=== PATIENT | female | born 1965 | race Caucasian/White ===

== ENCOUNTER → 2018-10-27 16:41 | Emergency (ER) | payer OTHER ==
[~2018-10-27 16:41] MED LIST: Ibuprofen TAB* 600 MG PO ONE; LORazepam TAB(*) 1 MG PO ONE; Mouth Piece, Nicotine* 1 EACH CARTRIDGE INH PRN; Nicotine Inhaler* 10 MG AMP INH PRN; Sulfamethox/Trimethoprim DS 800/160* TAB PO ONE
[2018-10-27 20:17] LABS: ABS Basophils 0.1 10^3/ul (0-0.2); ABS Eosinophils 0.1 10^3/ul (0-0.6); ABS Lymphocytes 2.4 10^3/ul (1.0-4.8); ABS Monocytes 0.6 10^3/ul (0-0.8); ABS Neutrophils 3.2 10^3/ul (1.5-7.7); ABS Nucleated RBC 0 10^3/ul; Eosinophil % 2.1 %; Hematocrit 42 % (35-47); Hemoglobin 14.1 g/dl (12.0-16.0); Lymphocyte % 37.8 %; Mean Corpuscular HGB Conc 34 g/dl (31-36); Mean Corpuscular Hemoglobin 31 pg (27-31); Mean Corpuscular Volume 90 fL (80-97); Mean Platelet Volume 6.9 fL (7.4-10.4); Nucleated Red Blood Cells % 0.1; Platelet Count 299 10^3/ul (150-450); Red Cell Distribution Width 14 % (10.5-15); White Blood Count 6.4 10^3/ul (3.5-10.8)
[2018-10-27 20:36] LABS: ALT 19 U/L (7-52); AST 19 U/L (13-39); Albumin 4.7 g/dL (3.2-5.2); Alkaline Phosphatase 61 U/L (34-104); Anion Gap 8 mmol/L (2-11); BUN/Creatinine Ratio 16.5 (8-20); Blood Urea Nitrogen 13 mg/dL (6-24); CO2 Carbon Dioxide 25 mmol/L (22-32); Calcium 9.5 mg/dL (8.6-10.3); Chloride 105 mmol/L (101-111); EGFR African American 91.8 (>60); EGFR Non-African American 75.8 (>60); Globulin 2.4 g/dL (2-4); Glucose 102 mg/dL (70-100); Potassium 3.7 mmol/L (3.5-5.0); Sodium 138 mmol/L (135-145); Total Protein 7.1 g/dL (6.4-8.9)
[2018-10-27 21:01] LABS: Acetaminophen < 15 mcg/mL; Alcohol < 10 mg/dL (<10); Salicylate < 2.50 mg/dL (<30)
[2018-10-27 21:16] LABS: TSH (Thyroid Stimulating Horm) 2.37 mcIU/mL (0.34-5.60)
[2018-10-27 21:37] LABS: Urine Appearance Cloudy; Urine Bacteria Absent (Absent); Urine Bilirubin Negative (Negative); Urine Blood 1+ (Negative); Urine Color Yellow; Urine Glucose Negative (Negative); Urine Ketones Trace (Negative); Urine Nitrite Negative (Negative); Urine Protein Negative (Negative); Urine Red Blood Cell 2+(6-10/hpf) (Absent); Urine Specific Gravity 1.013 (1.010-1.030); Urine Squamous Epithelial Cell Present (Absent); Urine Urobilinogen Negative (Negative); Urine White Blood Cell 3+(>20/hpf) (Absent)
--- NOTE | 2018-10-27 21:45 | ED ---
Medical Screening - HPI Summary HPI Summary: Patient complains of progressive anxiety 1 week. Patient has history of anxiety and depression, lives alone, and states she is very afraid to be alone. Denies SI, HI. Does not have a therapist. Denies any other pain, injury or symptoms. Medical history is anxiety and depression. Daily EtOH, denies recreational drug use. Nonsmoker. - History of Current Complaint Chief Complaint: EDPsychosocial Stated Complaint: ANXIETY Time Seen by Provider: 10/27/18 19:16 Onset/Duration: Started Days Ago Severity: moderate PMH/Surg Hx/FS Hx/Imm Hx Endocrine/Hematology History: Denies: Hx Anticoagulant Therapy Cardiovascular History: Denies: Hx Cardiac Arrest, Hx Pacemaker/ICD History: Denies: Hx Dialysis Sensory History: Denies: Hx Hearing Aid Opthamlomology History: Denies: Hx Legally Blind EENT History: Denies: Hx Deafness Neurological History: Reports: Hx Headaches Psychiatric History: Denies: Hx Panic Disorder - Cancer History Cancer Type, Location and Year: COLON CA, 2008 WITH PARTIAL REMOVAL OF COLON. Hx Chemotherapy: No Hx Radiation Therapy: No - Surgical History Surgery Procedure, Year, and Place: COLON CA WITH REMOVAL OF PARTIAL COLON 2008. Infectious Disease History: No Infectious Disease History: Denies: Traveled Outside the [place] in Last 30 Days - Social History Alcohol Use: Daily Substance Use Type: Reports: None Smoking Status (MU): Never Smoked Tobacco Review of Systems Constitutional: Negative Eyes: Negative ENT: Negative Cardiovascular: Negative Respiratory: Negative Gastrointestinal: Negative Genitourinary: Negative Musculoskeletal: Negative Skin: Negative Neurological: Negative Positive: Anxious All Other Systems Reviewed And Are Negative: Yes Physical Exam - Summary Physical Exam Summary: Patient alert and oriented, tearful during exam. Physical exam unremarkable. Triage Information Reviewed: Yes Vital Signs On Initial Exam: Initial Vitals Temp Pulse Resp BP Pulse Ox 99.0 F 98 20 163/96 97 10/27/18 17:12 10/27/18 17:12 10/27/18 17:12 10/27/18 17:12 10/27/18 17:12 Vital Signs Reviewed: Yes Appearance: Positive: Well-Appearing Skin: Positive: Warm Head/Face: Positive: Normal Head/Face Inspection Eyes: Positive: Normal Neck: Positive: Supple Respiratory/Lung Sounds: Positive: Clear to Auscultation Cardiovascular: Positive: Normal Abdomen Description: Positive: Nontender Musculoskeletal: Positive: Normal Neurological: Positive: Normal Psychiatric: Positive: Normal AVPU Assessment: Alert - Reza Coma Scale Best Eye Response: 4 - Spontaneous Best Motor Response: 6 - Obeys Commands Best Verbal Response: 5 - Oriented Coma Scale Total: 15 Diagnostics - Vital Signs Vital Signs Temp Pulse Resp BP Pulse Ox 10/27/18 19:58 18 10/27/18 19:13 80 99 10/27/18 19:12 84 163/85 97 10/27/18 17:12 99.0 F 98 20 163/96 97 - Laboratory Lab Results: Lab Results 10/27/18 10/27/18 10/27/18 Range/Units 19:14 19:14 21:00 WBC 6.4 (3.5-10.8) 10^3/ul RBC 4.60 (4.00-5.40) 10^6/ul Hgb 14.1 (12.0-16.0) g/dl Hct 42 (35-47) % MCV 90 (80-97) fL MCH 31 (27-31) pg MCHC 34 (31-36) g/dl RDW 14 (10.5-15) % Plt Count 299 (150-450) 10^3/ul MPV 6.9 L (7.4-10.4) fL Neut % (Auto) 49.4 % Lymph % (Auto) 37.8 % [place] % (Auto) 9.8 % Eos % (Auto) 2.1 % Baso % (Auto) 0.9 % Absolute Neuts (auto) 3.2 (1.5-7.7) 10^3/ul Absolute Lymphs (auto) 2.4 (1.0-4.8) 10^3/ul Absolute Monos (auto) 0.6 (0-0.8) 10^3/ul Absolute Eos (auto) 0.1 (0-0.6) 10^3/ul Absolute Basos (auto) 0.1 (0-0.2) 10^3/ul Absolute Nucleated RBC 0 10^3/ul Nucleated RBC % 0.1 Sodium 138 (135-145) mmol/L Potassium 3.7 (3.5-5.0) mmol/L Chloride 105 (101-111) mmol/L Carbon Dioxide 25 (22-32) mmol/L Anion Gap 8 (2-11) mmol/L BUN 13 (6-24) mg/dL Creatinine 0.79 (0.51-0.95) mg/dL Est GFR ( Amer) 91.8 (>60) Est GFR (Non-Af Amer) 75.8 (>60) BUN/Creatinine Ratio 16.5 (8-20) Glucose 102 H (70-100) mg/dL Calcium 9.5 (8.6-10.3) mg/dL Total Bilirubin 0.40 (0.2-1.0) mg/dL AST 19 (13-39) U/L ALT 19 (7-52) U/L Alkaline Phosphatase 61 (34-104) U/L Total Protein 7.1 (6.4-8.9) g/dL Albumin 4.7 (3.2-5.2) g/dL Globulin 2.4 (2-4) g/dL Albumin/Globulin Ratio 2.0 (1-3) TSH 2.37 (0.34-5.60) mcIU/mL Urine Color Yellow Urine Appearance Cloudy Urine pH 5.0 (5-9) Ur Specific [place] 1.013 (1.010-1.030) Urine Protein Negative (Negative) Urine Ketones Trace A (Negative) Urine Blood 1+ A (Negative) Urine Nitrate Negative (Negative) Urine Bilirubin Negative (Negative) Urine Urobilinogen Negative (Negative) Ur Leukocyte Esterase 3+ A (Negative) Urine WBC (Auto) 3+(>20/hpf) A (Absent) Urine RBC (Auto) 2+(6-10/hpf) A (Absent) Ur Squamous Epith Cells Present A (Absent) Urine Bacteria Absent (Absent) Urine Glucose Negative (Negative) Salicylates < 2.50 (<30) mg/dL Acetaminophen < 15 mcg/mL Serum Alcohol < 10 (<10) mg/dL Result Diagrams: 10/27/18 19:14 10/27/18 19:14 Lab Statement: Any lab studies that have been ordered have been reviewed, and results considered in the medical decision making process. Course/Dx - Course Course Of Treatment: Patient complains of progressive anxiety 1 week. Patient has history of anxiety and depression, lives alone, and states she is very afraid to be alone. Denies SI, HI. Does not have a therapist. Denies any other pain, injury or symptoms. Medical history is anxiety and depression. Daily EtOH, denies recreational drug use. Nonsmoker. Patient alert and oriented, tearful during exam. Physical exam unremarkable. Vital signs within normal limits. Labs unremarkable. UA appears to be positive for UTI. Cultures pending. Patient prefers to wait until cultures completed before starting antibiotics. Patient evaluated by mental health and outpatient therapy has been recommended. Patient understands and approves of plan. - Diagnoses Provider Diagnoses: UTI (urinary tract infection), Anxiety Discharge - Sign-Out/Discharge Documenting (check all that apply): Patient Departure Patient Received Moderate/Deep Sedation with Procedure: No - Discharge Plan Condition: Stable Disposition: HOME Prescriptions: Sulfamethox/Trimethoprim DS* [Bactrim DS 800/160 TAB*] 1 tab PO BID 10 Days #20 tab Patient Education Materials: Urinary Tract Infection in Women (ED), Mood Disorders (ED), Anxiety (ED) Referrals: Tyson Caban MD [Primary Care Provider] - Additional Instructions: Follow-up with outpatient therapy options as discussed with mental health evaluation provider. Return to the ED for any new or worsening symptoms. - Billing Disposition and Condition Condition: STABLE Disposition: Home
[2018-10-27 21:46] LABS: Barbiturates Urine Screen None Detected (None Detect); Benzodiazepine Urine Screen None Detected (None Detect); Urine Cannabinoids Screen None Detected (None Detect)
[2018-10-27 23:10] VITALS: BP 128/95
== END | disposition home or self-care (01) ==
LOC: ED 16:41
DX: N39.0 Urinary tract infection, site not specified (principal); F41.9 Anxiety disorder, unspecified; Z85.038 Personal history of other malignant neoplasm of large intestine
CPT/HCPCS: 36415; 80053; 80307; 80320; 80329; 81003; 81015; 84443; 85025; 87086; 99284; A9270-GY; G0480

== ENCOUNTER 2023-04-24 10:31 | Inpatient (IN) ==
[~2023-04-24 10:31] MED LIST changes: +CEFEPIME IVPB SCH; +GEMCITABINE HCL IVPB SCH; -Ibuprofen TAB* 600 MG PO ONE; -LORazepam TAB(*) 1 MG PO ONE; -Mouth Piece, Nicotine* 1 EACH CARTRIDGE INH PRN; +NS 0.9% IVPB SCH; -Nicotine Inhaler* 10 MG AMP INH PRN; -Sulfamethox/Trimethoprim DS 800/160* TAB PO ONE
[2023-04-24] MEDS ORDERED: Ondansetron 4 mg VIAL 2 MG/ML 2 ml VIAL IV PRN (11:14)
[2023-04-24] MEDS ORDERED: Cefepime 2 GM VIAL ONE (11:18)
[2023-04-24 11:46] LABS: Rapid Strep Molecular Negative (Negative)
[2023-04-24 11:59] LABS: Hematocrit 31.7 % (35-45); Hemoglobin 10.6 g/dL (11.5-14.3); Mean Corpuscular Hemoglobin 28.3 pg (27-33); Mean Corpuscular Hgb Conc 33.5 g/dL (31-36); Mean Corpuscular Volume 84.3 fL (80-97); Mean Platelet Volume 10.5 fL (7.5-11.2); Platelet Count 53 10^3/uL (150-450); Red Blood Count 3.76 10^6/uL (3.63-4.92); Red Cell Distribution Width 16.2 % (12-17); White Blood Count 0.7 10^3/uL (3.8-11.8)
[2023-04-24] MEDS ORDERED: Enoxaparin 40 MG/0.4 ML SYR SUBCUT SCH (12:00)
[2023-04-24 12:14] LABS: Urine Appearance Clear; Urine Bilirubin 1+ (Negative); Urine Blood Negative (Negative); Urine Color Amber; Urine Glucose Negative (Negative); Urine Ketones Negative (Negative); Urine Nitrite Negative (Negative); Urine Protein Negative (Negative); Urine Specific Gravity 1.015 (1.002-1.030); Urine Urobilinogen Positive (Negative)
[2023-04-24 12:14] LABS: Albumin 2.6 g/dL (3.2-5.2); Calcium 7.6 mg/dL (8.6-10.3); Creatinine, Serum 0.76 mg/dL (0.51-0.95); Globulin 2.5 g/dL (2-4); Potassium 3.2 mmol/L (3.5-5.0); Total Bilirubin 4.5 mg/dL (0.2-1.0); Total Protein 5.1 g/dL (6.4-8.9); eGFR CKD-EPI 90.8 (>60)
[2023-04-24 12:40] LABS: Magnesium 1.9 mg/dL (1.9-2.7)
[2023-04-24 12:51] LABS: ABS Lymphocytes 0.6 10^3/uL (1.0-4.8); ABS Monocytes 0.1 10^3/uL (0.0-0.9); ABS Nucleated RBC 0.01 10^3/ul; Eosinophil % 4.5 %; Lymphocyte % 83.5 %; Nucleated Red Blood Cells % 0.9 /100 WBC (0.0-0.4)
[2023-04-24] MEDS ORDERED: Magic MouthWash1-BEN/MAAL/LIDO 180 ML BTL SWISH SWAL SCH (13:00)
[2023-04-24] MEDS ORDERED: Senna TAB 8.6 mg TAB PO PRN (13:31)
[2023-04-24] MEDS: Magic MW-DIPH/MAG-AL-SIME/LIDO FIRST BLM KIT SWISH SWAL SCH ×2 (16:14→20:12)
[2023-04-24] MEDS: Nystatin SUSPENSION 100,000 UNITS/ML UDC PO SCH ×2 (16:14→20:12)
[2023-04-24] MEDS: KCL 20 MEQ/100 ML IVPREMIX 20 MEQ/100 ML BAG IV SCH ×2 (16:15→20:12)
[2023-04-24] MEDS: NS 0.9% 1000 ml BAG 1,000 ML IV SCH (16:15)
[2023-04-24] MEDS: Cefepime 2 GM in Dextrose 2 GM/50 ML BAG IV SCH (22:29)
[2023-04-25] MEDS: NS 0.9% 1000 ml BAG 1,000 ML IV SCH ×2 (02:55→15:58)
[2023-04-25] MEDS: Cefepime 2 GM in Dextrose 2 GM/50 ML BAG IV SCH ×3 (05:40→21:43)
[2023-04-25 06:21] LABS: Hematocrit 29.4 % (35-45); Hemoglobin 10.1 g/dL (11.5-14.3); Mean Corpuscular Hemoglobin 28.7 pg (27-33); Mean Corpuscular Hgb Conc 34.3 g/dL (31-36); Mean Corpuscular Volume 83.9 fL (80-97); Mean Platelet Volume 10.5 fL (7.5-11.2); Platelet Count 41 10^3/uL (150-450); Red Blood Count 3.51 10^6/uL (3.63-4.92); White Blood Count 1.4 10^3/uL (3.8-11.8)
[2023-04-25 06:28] LABS: Albumin 2.3 g/dL (3.2-5.2); Albumin/Globulin Ratio 0.9 (1-3); Calcium 7.2 mg/dL (8.6-10.3); Creatinine, Serum 0.65 mg/dL (0.51-0.95); Globulin 2.5 g/dL (2-4); Total Bilirubin 3.5 mg/dL (0.2-1.0); Total Protein 4.8 g/dL (6.4-8.9)
[2023-04-25] MEDS: Magic MW-DIPH/MAG-AL-SIME/LIDO FIRST BLM KIT SWISH SWAL SCH ×4 (08:19→20:30)
[2023-04-25] MEDS: Nystatin SUSPENSION 100,000 UNITS/ML UDC PO SCH ×4 (08:21→20:30)
[2023-04-25 08:40] LABS: RBC Morphology Normal (Normal)
[2023-04-25 08:42] LABS: ABS Lymphocytes 0.1 10^3/ul (1.0-4.8); ABS Monocytes 0.1 10^3/ul (0.0-0.9); ABS Neutrophils 1.2 10^3/ul (1.5-7.6)
[2023-04-25] MEDS ORDERED: Senna TAB 8.6 mg TAB PO PRN (10:58)
[2023-04-25] MEDS ORDERED: Morphine 2 MG/ML SYRINGE IV ONE (23:00)
[2023-04-26] MEDS: NS 0.9% 1000 ml BAG 1,000 ML IV SCH ×2 (02:59→14:42)
[2023-04-26] MEDS: Cefepime 2 GM in Dextrose 2 GM/50 ML BAG IV SCH ×3 (05:17→21:18)
[2023-04-26 06:53] LABS: Hematocrit 28.5 % (35-45); Hemoglobin 9.8 g/dL (11.5-14.3); Mean Corpuscular Hemoglobin 28.7 pg (27-33); Mean Corpuscular Hgb Conc 34.4 g/dL (31-36); Mean Corpuscular Volume 83.4 fL (80-97); Platelet Count 55 10^3/uL (150-450); Red Blood Count 3.42 10^6/uL (3.63-4.92); Red Cell Distribution Width 16.6 % (12-17); White Blood Count 2.4 10^3/uL (3.8-11.8)
[2023-04-26 06:58] LABS: Albumin 2.3 g/dL (3.2-5.2); Calcium 7.4 mg/dL (8.6-10.3); Creatinine, Serum 0.72 mg/dL (0.51-0.95); Globulin 2.3 g/dL (2-4); Potassium 3.7 mmol/L (3.5-5.0); Total Bilirubin 2.6 mg/dL (0.2-1.0); Total Protein 4.6 g/dL (6.4-8.9); eGFR CKD-EPI 96.9 (>60)
[2023-04-26 07:10] LABS: RBC Morphology Normal (Normal)
[2023-04-26 07:11] LABS: ABS Lymphocytes 1.2 10^3/uL (1.0-4.8); ABS Monocytes 0.9 10^3/uL (0.0-0.9); ABS Neutrophils 0.2 10^3/uL (1.5-7.6); ABS Nucleated RBC 0.01 10^3/ul; Lymphocyte % 51.9 %; Nucleated Red Blood Cells % 0.6 /100 WBC (0.0-0.4)
[2023-04-26] MEDS: Morphine 4 MG/ML VIAL (1 ml) IV PRN ×2 (10:23→14:42)
[2023-04-26] MEDS: Nystatin SUSPENSION 100,000 UNITS/ML UDC PO SCH ×4 (10:23→21:17)
[2023-04-26] MEDS: Magic MW-DIPH/MAG-AL-SIME/LIDO FIRST BLM KIT SWISH SWAL SCH ×4 (10:23→21:17)
[2023-04-27] MEDS: Morphine 4 MG/ML VIAL (1 ml) IV PRN ×5 (00:17→21:59)
[2023-04-27] MEDS: NS 0.9% 1000 ml BAG 1,000 ML IV SCH (04:42)
[2023-04-27] MEDS: Cefepime 2 GM in Dextrose 2 GM/50 ML BAG IV SCH ×3 (05:28→22:16)
[2023-04-27 06:03] LABS: ABS Lymphocytes 2.3 10^3/uL (1.0-4.8); ABS Monocytes 2.1 10^3/uL (0.0-0.9); ABS Nucleated RBC 0.11 10^3/ul; Eosinophil % 0.5 %; Hematocrit 28.3 % (35-45); Hemoglobin 9.7 g/dL (11.5-14.3); Lymphocyte % 35.1 %; Mean Corpuscular Hemoglobin 28.7 pg (27-33); Mean Corpuscular Hgb Conc 34.3 g/dL (31-36); Mean Corpuscular Volume 83.8 fL (80-97); Mean Platelet Volume 9.8 fL (7.5-11.2); Nucleated Red Blood Cells % 1.6 /100 WBC (0.0-0.4); Platelet Count 98 10^3/uL (150-450); Red Blood Count 3.38 10^6/uL (3.63-4.92); Red Cell Distribution Width 16.4 % (12-17); White Blood Count 6.5 10^3/uL (3.8-11.8)
[2023-04-27 06:14] LABS: Albumin 2.3 g/dL (3.2-5.2); Albumin/Globulin Ratio 0.9 (1-3); Calcium 7.5 mg/dL (8.6-10.3); Creatinine, Serum 0.8 mg/dL (0.51-0.95); Globulin 2.5 g/dL (2-4); Potassium 3.8 mmol/L (3.5-5.0); Total Bilirubin 2.4 mg/dL (0.2-1.0); Total Protein 4.8 g/dL (6.4-8.9); eGFR CKD-EPI 85.4 (>60)
[2023-04-27 06:41] LABS: Polychromasia 1+
[2023-04-27] MEDS: Nystatin SUSPENSION 100,000 UNITS/ML UDC PO SCH ×5 (09:03→22:02)
[2023-04-27] MEDS: Magic MW-DIPH/MAG-AL-SIME/LIDO FIRST BLM KIT SWISH SWAL SCH ×4 (09:03→22:01)
[2023-04-27] MEDS: Iohexol 350 (CONTRAST) 500 ML MDV IV ONE ×2 (12:20→12:49)
[2023-04-27] MEDS ORDERED: Furosemide 40 mg/4 ml IV VIAL IV ONE (14:18)
[2023-04-27] MEDS: Enoxaparin 40 MG/0.4 ML SYR SUBCUT SCH (15:30)
[2023-04-28] MEDS: Morphine 4 MG/ML VIAL (1 ml) IV PRN ×2 (02:40→09:44)
[2023-04-28 06:18] LABS: Hematocrit 27.8 % (35-45); Hemoglobin 9.6 g/dL (11.5-14.3); Mean Corpuscular Hemoglobin 28.8 pg (27-33); Mean Corpuscular Hgb Conc 34.5 g/dL (31-36); Mean Corpuscular Volume 83.4 fL (80-97); Mean Platelet Volume 9.1 fL (7.5-11.2); Platelet Count 144 10^3/uL (150-450); Red Blood Count 3.33 10^6/uL (3.63-4.92); Red Cell Distribution Width 16.4 % (12-17); White Blood Count 9.2 10^3/uL (3.8-11.8)
[2023-04-28] MEDS: Cefepime 2 GM in Dextrose 2 GM/50 ML BAG IV SCH ×3 (06:29→22:15)
[2023-04-28 06:41] LABS: ABS Lymphocytes 2.1 10^3/uL (1.0-4.8); ABS Monocytes 2.5 10^3/uL (0.0-0.9); ABS Neutrophils 4.5 10^3/uL (1.5-7.6); Eosinophil % 0.4 %; Lymphocyte % 23.3 %; Nucleated Red Blood Cells % 2.1 /100 WBC (0.0-0.4); Polychromasia 1+
[2023-04-28] MEDS: Nystatin SUSPENSION 100,000 UNITS/ML UDC PO SCH ×4 (09:43→22:28)
[2023-04-28] MEDS: Magic MW-DIPH/MAG-AL-SIME/LIDO FIRST BLM KIT SWISH SWAL SCH ×4 (09:43→22:28)
[2023-04-28] MEDS ORDERED: Morphine 4 MG/ML VIAL (1 ml) IV PRN (11:48)
[2023-04-28] MEDS: Enoxaparin 40 MG/0.4 ML SYR SUBCUT SCH (15:16)
[2023-04-29] MEDS: Cefepime 2 GM in Dextrose 2 GM/50 ML BAG IV SCH ×3 (05:11→22:03)
[2023-04-29] MEDS: Magic MW-DIPH/MAG-AL-SIME/LIDO FIRST BLM KIT SWISH SWAL SCH ×4 (09:04→22:02)
[2023-04-29] MEDS: Nystatin SUSPENSION 100,000 UNITS/ML UDC PO SCH ×4 (09:05→22:00)
[2023-04-29] MEDS ORDERED: Succinylcholine 200 mg VIAL 20 mg/ml 10 ml VIAL (200 mg) ONE (14:27)
[2023-04-29] MEDS ORDERED: Lidocaine 2% PF 5 ML VIAL ONE (14:27)
[2023-04-29] MEDS ORDERED: Propofol 10 MG/ML 20 ML BTL ONE (14:27)
[2023-04-29] MEDS ORDERED: fentaNYL 100 mcg/2 ml 50 MCG/ML VIAL IV PRN (15:35)
[2023-04-29] MEDS ORDERED: Naloxone 0.4 mg VIAL 0.4 mg/ml 1 ml VIAL IV PRN (15:35)
[2023-04-29] MEDS ORDERED: Ondansetron 4 mg VIAL 2 MG/ML 2 ml VIAL IV PRN (15:35)
[2023-04-29] MEDS ORDERED: TPN 24 HR with Dextrose 50% Water 500 ML, Amino Acid Infusion 10% 850 ML, Sterile Water... CENT\\PICC SCH (17:00)
[2023-04-29] MEDS ORDERED: PPN (PERIPHERAL) 24 HR with D10W 1000 ml BAG 1,000 ML, Amino Acid Infusion 10% 850 ML, ... IV SCH (17:00)
[2023-04-30 06:12] LABS: Hematocrit 29.5 % (35-45); Hemoglobin 10.1 g/dL (11.5-14.3); Mean Corpuscular Hemoglobin 28.3 pg (27-33); Mean Corpuscular Hgb Conc 34.1 g/dL (31-36); Mean Corpuscular Volume 83.1 fL (80-97); Mean Platelet Volume 8.7 fL (7.5-11.2); Platelet Count 284 10^3/uL (150-450); Red Blood Count 3.55 10^6/uL (3.63-4.92); Red Cell Distribution Width 16.6 % (12-17)
[2023-04-30] MEDS: Cefepime 2 GM in Dextrose 2 GM/50 ML BAG IV SCH ×2 (06:28→15:50)
[2023-04-30 06:29] LABS: ALT 55 U/L (7-52); AST 257 U/L (13-39); Albumin 2.4 g/dL (3.2-5.2); Albumin/Globulin Ratio 0.9 (1-3); Alkaline Phosphatase 806 U/L (35-149); Anion Gap 9 mmol/L (2-16); Blood Urea Nitrogen 11 mg/dL (6-24); CO2 Carbon Dioxide 19 mmol/L (22-32); Calcium 7.8 mg/dL (8.6-10.3); Chloride 110 mmol/L (101-111); Cholesterol 123 mg/dL; Creatinine, Serum 0.81 mg/dL (0.51-0.95); Globulin 2.8 g/dL (2-4); Glucose 114 mg/dL (70-100); Phosphorus 2.5 mg/dL (2.5-5.0); Potassium 3.1 mmol/L (3.5-5.0); Sodium 138 mmol/L (135-145); Total Protein 5.2 g/dL (6.4-8.9); Triglycerides 270 mg/dL; eGFR CKD-EPI 84.1 (>60)
[2023-04-30 06:32] LABS: Prealbumin < 3 mg/dL (18-38)
[2023-04-30 08:31] LABS: ABS Lymphocytes 2.6 10^3/uL (1.0-4.8); ABS Monocytes 3.7 10^3/uL (0.0-0.9); ABS Neutrophils 8.6 10^3/uL (1.5-7.6); ABS Nucleated RBC 0.41 10^3/ul; Lymphocyte % 17.7 %; Nucleated Red Blood Cells % 2.7 /100 WBC (0.0-0.4)
[2023-04-30 08:37] LABS: Anisocytosis 1+
[2023-04-30] MEDS: Magic MW-DIPH/MAG-AL-SIME/LIDO FIRST BLM KIT SWISH SWAL SCH ×4 (09:07→20:39)
[2023-04-30] MEDS: Nystatin SUSPENSION 100,000 UNITS/ML UDC PO SCH ×4 (09:13→20:39)
[2023-04-30] MEDS: Morphine ORAL.SOLN 10 mg 2 mg/ml UDC 5 ml (10 mg) PO PRN (09:16)
[2023-04-30] MEDS ORDERED: TPN 24 HR with Dextrose 50% Water 500 ML, Amino Acid Infusion 10% 850 ML, Sterile Water... CENT\\PICC SCH (17:00)
[2023-04-30 20:12] LABS: CA 15-3 1948 U/mL (<30)
[2023-04-30] MEDS: KCL 20 MEQ/100 ML IVPREMIX 20 MEQ/100 ML BAG IV SCH ×2 (20:37→22:39)
[2023-04-30] MEDS: Enoxaparin 40 MG/0.4 ML SYR SUBCUT SCH (22:42)
[2023-05-01 06:46] LABS: Hematocrit 31.3 % (35-45); Hemoglobin 10.4 g/dL (11.5-14.3); Mean Corpuscular Hemoglobin 27.9 pg (27-33); Mean Corpuscular Hgb Conc 33.2 g/dL (31-36); Mean Platelet Volume 8.4 fL (7.5-11.2); Platelet Count 323 10^3/uL (150-450); Red Blood Count 3.73 10^6/uL (3.63-4.92); White Blood Count 16.2 10^3/uL (3.8-11.8)
[2023-05-01 07:02] LABS: Albumin 2.3 g/dL (3.2-5.2); Calcium 7.6 mg/dL (8.6-10.3); Creatinine, Serum 0.84 mg/dL (0.51-0.95); Globulin 2.7 g/dL (2-4); Magnesium 2.1 mg/dL (1.9-2.7); Potassium 3.7 mmol/L (3.5-5.0); eGFR CKD-EPI 80.5 (>60)
[2023-05-01 07:03] LABS: Albumin/Globulin Ratio 0.9 (1-3); Total Bilirubin 2.2 mg/dL (0.2-1.0)
[2023-05-01 08:33] LABS: RBC Morphology Normal (Normal)
[2023-05-01 08:35] LABS: ABS Lymphocytes 2.6 10^3/ul (1.0-4.8); ABS Monocytes 2.4 10^3/ul (0.0-0.9); ABS Neutrophils 11.2 10^3/ul (1.5-7.6)
[2023-05-01] MEDS: Nystatin SUSPENSION 100,000 UNITS/ML UDC PO SCH ×4 (09:25→19:59)
[2023-05-01] MEDS: Magic MW-DIPH/MAG-AL-SIME/LIDO FIRST BLM KIT SWISH SWAL SCH ×4 (09:26→20:00)
[2023-05-01] MEDS: Morphine ORAL.SOLN 10 mg 2 mg/ml UDC 5 ml (10 mg) PO PRN (19:59)
[2023-05-01] MEDS: Enoxaparin 40 MG/0.4 ML SYR SUBCUT SCH (20:02)
[2023-05-02] MEDS: Morphine ORAL.SOLN 10 mg 2 mg/ml UDC 5 ml (10 mg) PO PRN (05:57)
[2023-05-02 06:40] LABS: Hematocrit 30.4 % (35-45); Hemoglobin 10.2 g/dL (11.5-14.3); Mean Corpuscular Hemoglobin 28.3 pg (27-33); Mean Corpuscular Hgb Conc 33.6 g/dL (31-36); Mean Corpuscular Volume 84.2 fL (80-97); Mean Platelet Volume 8.4 fL (7.5-11.2); Platelet Count 332 10^3/uL (150-450); Red Blood Count 3.61 10^6/uL (3.63-4.92)
[2023-05-02 07:11] LABS: Calcium 7.7 mg/dL (8.6-10.3); Creatinine, Serum 0.72 mg/dL (0.51-0.95); Potassium 3.6 mmol/L (3.5-5.0); eGFR CKD-EPI 96.9 (>60)
[2023-05-02 07:29] LABS: ABS Monocytes 4.8 10^3/uL (0.0-0.9); ABS Neutrophils 7.3 10^3/uL (1.5-7.6); ABS Nucleated RBC 0.19 10^3/ul; Eosinophil % 0.1 %; Lymphocyte % 19.8 %; Nucleated Red Blood Cells % 1.3 /100 WBC (0.0-0.4); Polychromasia 1+
[2023-05-02] MEDS: Nystatin SUSPENSION 100,000 UNITS/ML UDC PO SCH ×4 (07:57→20:25)
[2023-05-02] MEDS: Magic MW-DIPH/MAG-AL-SIME/LIDO FIRST BLM KIT SWISH SWAL SCH ×4 (07:57→20:25)
[2023-05-02] MEDS ORDERED: Iohexol 350 (CONTRAST) 500 ML MDV IV ONE (12:02)
[2023-05-02 12:56] LABS: Breast Carcinoma Ag(CA27.29) 3121 U/mL (<=38.0)
[2023-05-02] MEDS ORDERED: Magnesium Hydroxide LIQ 30 ML UDC PO PRN (18:24)
[2023-05-02] MEDS: Enoxaparin 40 MG/0.4 ML SYR SUBCUT SCH (20:24)
[2023-05-03] MEDS: Nystatin SUSPENSION 100,000 UNITS/ML UDC PO SCH (08:38)
[2023-05-03] MEDS: Magic MW-DIPH/MAG-AL-SIME/LIDO FIRST BLM KIT SWISH SWAL SCH (08:40)
[2023-05-03 09:49] VITALS: BP 124/77
== END 2023-05-03 11:15 | disposition home or self-care (01) | DRG 808 ==
LOC: CHOA 10:31 → MED 10:31 → SUATTDRO 04-27 11:55
PROVIDERS: ADMIT Internal Medicine Hematology & Oncology; ATTEND Student in an Organized Health Care Education/Training Program
PROC: O.GIEGD (2023-04-29 13:40)

== ENCOUNTER 2023-08-21 11:43 | Inpatient (IN) ==
[2023-08-21] MEDS ORDERED: Morphine 4 MG/ML VIAL (1 ml) IV ONE (12:40)
[2023-08-21] MEDS ORDERED: Ondansetron 4 mg VIAL 2 MG/ML 2 ml VIAL IV ONE (12:40)
[2023-08-21] MEDS ORDERED: Lidocaine 1% MPF 5 ML VIAL INJ ONE (12:50)
[2023-08-21] MEDS ORDERED: Lidocaine 2.5%/Prilocain 2.5% 5 GM TUBE TOPICAL ONE (12:53)
[2023-08-21 14:07] LABS: ABS Lymphocytes 1.6 10^3/uL (1.0-4.8); ABS Neutrophils 13.7 10^3/uL (1.5-7.6); ABS Nucleated RBC 0.02 10^3/ul; Eosinophil % 0.2 %; Hemoglobin 11.2 g/dL (11.5-14.3); Lymphocyte % 9.8 %; Mean Corpuscular Hemoglobin 35.9 pg (27-33); Mean Corpuscular Volume 105.5 fL (80-97); Mean Platelet Volume 8.7 fL (7.5-11.2); Nucleated Red Blood Cells % 0.1 %/100WBC (0.0-0.8); Platelet Count 167 10^3/uL (150-450); Red Blood Count 3.12 10^6/uL (3.63-4.92); Red Cell Distribution Width 16.5 % (12-17); White Blood Count 16.4 10^3/uL (3.8-11.8)
[2023-08-21 14:11] LABS: INR 1.45 (0.83-1.13)
[2023-08-21 14:20] LABS: Albumin 2.3 g/dL (3.2-5.2); Albumin/Globulin Ratio 0.9 (1-3); Calcium 7.8 mg/dL (8.6-10.3); Creatinine, Serum 1.91 mg/dL (0.51-0.95); Globulin 2.5 g/dL (2-4); Potassium 4.9 mmol/L (3.5-5.0); Total Bilirubin 4.3 mg/dL (0.2-1.0); Total Protein 4.8 g/dL (6.4-8.9); eGFR CKD-EPI 29.9 (>60)
[2023-08-21] MEDS ORDERED: cefTRIAXone 1 gm/50 mL D5W 1 GM/50 ML BAG IV ONE ×2 (18:51→22:36)
[2023-08-21] MEDS ORDERED: NS 0.9% 500 ml BAG 500 ML IV ONE (18:52)
[2023-08-21 21:24] LABS: C Reactive Protein 144.73 mg/L (<8.01); Magnesium 2.2 mg/dL (1.9-2.7)
[2023-08-21] MEDS ORDERED: HYDROmorphone 1 MG/1 ML SYRINGE IV PRN (21:40)
[2023-08-21] MEDS ORDERED: Senna TAB 8.6 mg TAB PO PRN (21:48)
[2023-08-21] MEDS ORDERED: Magnesium Hydroxide LIQ 30 ML UDC PO PRN (21:48)
[2023-08-21 22:34] LABS: Direct Bilirubin 2.2 mg/dL (0.03-0.18); Indirect Bilirubin 2.1 mg/dL (0.3-1.0)
[2023-08-22] MEDS: Morphine 2 MG/ML SYRINGE IV PRN (00:59)
[2023-08-22] MEDS: Enoxaparin 30 MG/0.3 ML SYR SUBCUT SCH ×2 (01:45→21:40)
[2023-08-22 03:10] LABS: Urine Osmo 401 mOsm/kg (150-1150)
[2023-08-22] MEDS ORDERED: Ondansetron 4 mg VIAL 2 MG/ML 2 ml VIAL IV PRN ×3 (06:08→09:18)
[2023-08-22 06:41] LABS: ABS Eosinophils 0.1 10^3/uL (0.0-0.5); ABS Lymphocytes 1.6 10^3/uL (1.0-4.8); ABS Monocytes 0.6 10^3/uL (0.0-0.9); ABS Neutrophils 8.9 10^3/uL (1.5-7.6); Eosinophil % 0.5 %; Hematocrit 30.9 % (35-45); Hemoglobin 10.5 g/dL (11.5-14.3); Lymphocyte % 14.3 %; Mean Corpuscular Hemoglobin 35.9 pg (27-33); Mean Corpuscular Hgb Conc 33.9 g/dL (31-36); Mean Corpuscular Volume 105.8 fL (80-97); Mean Platelet Volume 8.3 fL (7.5-11.2); Platelet Count 147 10^3/uL (150-450); Red Blood Count 2.92 10^6/uL (3.63-4.92); Red Cell Distribution Width 16.7 % (12-17); White Blood Count 11.2 10^3/uL (3.8-11.8)
[2023-08-22 07:32] LABS: Albumin/Globulin Ratio 0.8 (1-3); Calcium 7.6 mg/dL (8.6-10.3); Creatinine, Serum 1.91 mg/dL (0.51-0.95); Globulin 2.4 g/dL (2-4); Magnesium 2.2 mg/dL (1.9-2.7); Potassium 4.8 mmol/L (3.5-5.0); Total Bilirubin 4.1 mg/dL (0.2-1.0); Total Protein 4.4 g/dL (6.4-8.9); eGFR CKD-EPI 29.9 (>60)
[2023-08-22] MEDS ORDERED: Prochlorperazine 5 mg/ml 2 ml VIAL (10 mg) IV PRN (09:18)
[2023-08-22] MEDS: CMCS: Letrozole 2.5 MG TAB (NF) PO SCH (10:37)
[2023-08-22] MEDS: DULoxetine DR 30 mg CAP PO SCH (10:38)
[2023-08-22 11:38] LABS: Osmolality Serum 282 mOsm/kg (275-295)
[2023-08-22] MEDS ORDERED: NS 0.9% 1000 ml BAG 1,000 ML IV SCH (15:00)
[2023-08-22] MEDS ORDERED: cefTRIAXone 1 gm/50 mL D5W 1 GM/50 ML BAG IV SCH (19:30)
[2023-08-22] MEDS: cefTRIAXone 2 gm/50 mL D5W 2 GM/50 ML BAG IV SCH (22:21)
[2023-08-23 06:58] LABS: ABS Lymphocytes 1.3 10^3/uL (1.0-4.8); ABS Monocytes 0.5 10^3/uL (0.0-0.9); ABS Neutrophils 6.2 10^3/uL (1.5-7.6); ABS Nucleated RBC 0.01 10^3/ul; Eosinophil % 0.3 %; Hematocrit 31.8 % (35-45); Hemoglobin 10.9 g/dL (11.5-14.3); Lymphocyte % 16.6 %; Mean Corpuscular Hemoglobin 36.3 pg (27-33); Mean Corpuscular Hgb Conc 34.1 g/dL (31-36); Mean Corpuscular Volume 106.5 fL (80-97); Nucleated Red Blood Cells % 0.1 %/100WBC (0.0-0.8); Platelet Count 156 10^3/uL (150-450); Red Blood Count 2.99 10^6/uL (3.63-4.92); Red Cell Distribution Width 16.4 % (12-17); White Blood Count 8.1 10^3/uL (3.8-11.8)
[2023-08-23 07:12] LABS: Creatinine, Serum 1.65 mg/dL (0.51-0.95); Magnesium 2.2 mg/dL (1.9-2.7); Potassium 4.6 mmol/L (3.5-5.0); eGFR CKD-EPI 35.6 (>60)
[2023-08-23] MEDS: CMCS: Letrozole 2.5 MG TAB (NF) PO SCH (09:00)
[2023-08-23] MEDS: DULoxetine DR 30 mg CAP PO SCH (09:00)
[2023-08-23] MEDS ORDERED: HYDROmorphone 0.5 MG/0.5 ML SYRINGE IV SLOW PU ONE (11:29)
[2023-08-24] MEDS: Enoxaparin 30 MG/0.3 ML SYR SUBCUT SCH (04:49)
[2023-08-24] MEDS: cefTRIAXone 2 gm/50 mL D5W 2 GM/50 ML BAG IV SCH (04:49)
[2023-08-24 05:23] LABS: Calcium 7.4 mg/dL (8.6-10.3); Creatinine, Serum 1.4 mg/dL (0.51-0.95); eGFR CKD-EPI 43.3 (>60)
[2023-08-24 06:03] LABS: Hematocrit 28.1 % (35-45); Hemoglobin 9.8 g/dL (11.5-14.3); Mean Corpuscular Hemoglobin 36.8 pg (27-33); Mean Platelet Volume 8.3 fL (7.5-11.2); Platelet Count 144 10^3/uL (150-450); Red Blood Count 2.68 10^6/uL (3.63-4.92); Red Cell Distribution Width 16.4 % (12-17); White Blood Count 4.9 10^3/uL (3.8-11.8)
[2023-08-24 06:30] LABS: Anisocytosis 1+; Polychromasia 1+
[2023-08-24 06:31] LABS: ABS Basophils 0.1 10^3/uL (0.0-0.1); ABS Lymphocytes 0.9 10^3/uL (1.0-4.8); ABS Monocytes 0.5 10^3/uL (0.0-0.9); ABS Neutrophils 3.3 10^3/uL (1.5-7.6); Eosinophil % 0.7 %; Nucleated Red Blood Cells % 0.1 %/100WBC (0.0-0.8)
[2023-08-24] MEDS: DULoxetine DR 30 mg CAP PO SCH ×2 (07:46→07:52)
[2023-08-24] MEDS: CMCS: Letrozole 2.5 MG TAB (NF) PO SCH (07:46)
[2023-08-24 10:09] VITALS: BP 121/74
[2023-08-24] MEDS: Morphine 2 MG/ML SYRINGE IV PRN (11:35)
[2023-08-24 13:58] LABS: Hepatitis C Antibody Negative (Negative)
== END 2023-08-24 13:00 | disposition home or self-care (01) | DRG 372 ==
LOC: EDHOLD 11:43 → ED 11:43 → SUATTDRO 20:53 → SSU 22:22
PROVIDERS: ADMIT Internal Medicine; ATTEND Internal Medicine

== ENCOUNTER 2023-08-29 10:29 | Inpatient (IN) ==
[~2023-08-29 10:29] MED LIST changes: -CEFEPIME IVPB SCH; -GEMCITABINE HCL IVPB SCH; -NS 0.9% IVPB SCH; +Sodium Polystyrene ORAL.SUSP 15 GM/60 ML BTL PO SCH
[2023-08-29] MEDS ORDERED: Lidocaine 4% CREAM (LMX) 5 GM TUBE TOPICAL ONE (10:41)
[2023-08-29 11:26] LABS: Hematocrit 30.3 % (35-45); Hemoglobin 10.4 g/dL (11.5-14.3); Mean Corpuscular Hemoglobin 36.2 pg (27-33); Mean Corpuscular Hgb Conc 34.5 g/dL (31-36); Mean Corpuscular Volume 104.9 fL (80-97); Mean Platelet Volume 8.3 fL (7.5-11.2); Platelet Count 185 10^3/uL (150-450); Red Blood Count 2.88 10^6/uL (3.63-4.92); Red Cell Distribution Width 17.3 % (12-17); White Blood Count 4.4 10^3/uL (3.8-11.8)
[2023-08-29 11:35] LABS: ABS Neutrophils 2.1 10^3/uL (1.5-7.6)
[2023-08-29 12:00] LABS: Albumin 2.2 g/dL (3.2-5.2); Calcium 7.8 mg/dL (8.6-10.3); Creatinine, Serum 2.24 mg/dL (0.51-0.95); Globulin 2.3 g/dL (2-4); Potassium 6.4 mmol/L (3.5-5.0); Total Bilirubin 3.1 mg/dL (0.2-1.0); Total Protein 4.5 g/dL (6.4-8.9); eGFR CKD-EPI 24.7 (>60)
[2023-08-29 12:12] LABS: ABS Basophils 0.1 10^3/uL (0.0-0.1); ABS Lymphocytes 0.9 10^3/uL (1.0-4.8); ABS Monocytes 1.4 10^3/uL (0.0-0.9); Eosinophil % 0.3 %; Lymphocyte % 20.8 %; Nucleated Red Blood Cells % 0.1 %/100WBC (0.0-0.8); RBC Morphology Normal (Normal)
[2023-08-29] MEDS ORDERED: Furosemide 20 mg/2 ml IV VIAL ONE (12:27)
[2023-08-29 15:38] LABS: Calcium 7.7 mg/dL (8.6-10.3); Creatinine, Serum 2.22 mg/dL (0.51-0.95); Potassium 6.2 mmol/L (3.5-5.0); eGFR CKD-EPI 24.9 (>60)
[2023-08-29] MEDS ORDERED: Furosemide 40 mg/4 ml IV VIAL IV SLOW PU ONE (16:39)
[2023-08-29] MEDS ORDERED: Sodium Polystyrene ORAL.SUSP 15 GM/60 ML BTL PO ONE (16:39)
[2023-08-29] MEDS ORDERED: Senna TAB 8.6 mg TAB PO PRN (16:44)
[2023-08-29] MEDS ORDERED: Enoxaparin 30 MG/0.3 ML SYR SUBCUT SCH (20:00)
[2023-08-29] MEDS: Nystatin SUSPENSION 100,000 UNITS/ML UDC PO SCH ×2 (21:18→21:19)
[2023-08-29] MEDS: NS 0.9% 1000 ml BAG 1,000 ML IV SCH (21:20)
[2023-08-30 05:53] LABS: Hematocrit 26.8 % (35-45); Hemoglobin 9.3 g/dL (11.5-14.3); Mean Corpuscular Hemoglobin 36.3 pg (27-33); Mean Corpuscular Hgb Conc 34.7 g/dL (31-36); Mean Corpuscular Volume 104.6 fL (80-97); Platelet Count 178 10^3/uL (150-450); Red Blood Count 2.56 10^6/uL (3.63-4.92); Red Cell Distribution Width 17.7 % (12-17); White Blood Count 5.1 10^3/uL (3.8-11.8)
[2023-08-30 06:08] LABS: Albumin/Globulin Ratio 0.9 (1-3); Calcium 7.5 mg/dL (8.6-10.3); Creatinine, Serum 2.02 mg/dL (0.51-0.95); Globulin 2.2 g/dL (2-4); Potassium 5.2 mmol/L (3.5-5.0); Total Protein 4.2 g/dL (6.4-8.9); eGFR CKD-EPI 27.9 (>60)
[2023-08-30 07:49] LABS: ABS Basophils 0.1 10^3/uL (0.0-0.1); ABS Lymphocytes 1.5 10^3/uL (1.0-4.8); ABS Monocytes 1.4 10^3/uL (0.0-0.9); ABS Neutrophils 2.1 10^3/uL (1.5-7.6); Anisocytosis 1+; Eosinophil % 0.4 %; Lymphocyte % 29.9 %; Macrocytosis 1+; Nucleated Red Blood Cells % 0.1 %/100WBC (0.0-0.8)
[2023-08-30] MEDS: NS 0.9% 1000 ml BAG 1,000 ML IV SCH (08:20)
[2023-08-30] MEDS ORDERED: SODIUM ZIRCONIUM CYCLOSILICATE 10 GM PACKET PO ONE ×3 (08:30→14:00)
[2023-08-30] MEDS ORDERED: CMCS:Letrozole 2.5 MG TAB (NF) PO SCH (09:00)
[2023-08-30 11:14] VITALS: BP 98/55
[2023-08-30] MEDS: Nystatin SUSPENSION 100,000 UNITS/ML UDC PO SCH (11:46)
[2023-08-30 12:58] LABS: Calcium 7.4 mg/dL (8.6-10.3); Potassium 4.9 mmol/L (3.5-5.0); eGFR CKD-EPI 28.2 (>60)
== END 2023-08-30 14:30 | disposition home or self-care (01) | DRG 641 ==
LOC: CHOA 10:29 → MEDTELE 17:16
PROVIDERS: ADMIT Internal Medicine Medical Oncology; ATTEND Hospitalist